=== PATIENT | female | born 1985 | race Two or more races ===

== ENCOUNTER 2023-09-08 00:50 | Emergency (ER) | payer MEDICAID ==
[~2023-09-08] VITALS: Ht 167.6 cm; Wt 59.1 kg
[2023-09-08 02:54] LABS: PH,URINE DRUG SCREEN 6.5 (5.0-8.0)
[2023-09-08 03:00] LABS: ALCOHOL, URINE DRUG SCREEN NEGATIVE (NEGATIVE); AMPHET/METH SCREEN,URINE POSITIVE (NEGATIVE); BARBITURATE SCREEN, URINE NEGATIVE (NEGATIVE); BENZODIAZEPINES SCREEN,URINE NEGATIVE (NEGATIVE); CANNABINOID SCREEN,URINE POSITIVE (NEGATIVE); COCAINE SCREEN,URINE NEGATIVE (NEGATIVE); METHADONE SCREEN, URINE NEGATIVE (NEGATIVE); OPIATE SCREEN,URINE NEGATIVE (NEGATIVE); PHENCYCLIDINE SCREEN,URINE NEGATIVE (NEGATIVE)
[2023-09-08 03:47] LABS: ANION GAP 7 mmol/L (8-16); CALCIUM, TOTAL 7.8 mg/dL (8.8-10.5); CARBON DIOXIDE 29 mmol/L (22-29); CHLORIDE 104 mmol/L (98-107); CREATININE 0.66 mg/dL (0.60-1.30); GLOMERULAR FILTR. RATE CALC > 60 mL/min (>60); GLUCOSE,RANDOM 112 mg/dL (70-110); POTASSIUM 3.3 mmol/L (3.5-5.1); SODIUM SERUM 140 mmol/L (136-145); UREA NITROGEN, BLOOD 10 mg/dL (7-18)
[2023-09-08 03:48] LABS: BASOPHILS % (AUTO) 0.3 % (0.0-2.0); EOSINOPHILS % (AUTO) 0.1 % (1.0-6.0); HEMOGLOBIN 8.1 g/dL (12.0-16.0); LYMPHOCYTES # (AUTO) 0.8 K/uL (1.0-4.8); LYMPHOCYTES % (AUTO) 6.2 % (22.0-44.0); MEAN CORPUSCULAR HEMOGLOBIN 18.4 pg (26.0-34.0); MEAN CORPUSCULAR VOLUME 62 fL (80-100); MONOCYTES # (AUTO) 0.4 K/uL (0.1-1.0); MONOCYTES % (AUTO) 3.1 % (2.0-9.0); NEUTROPHILS # (AUTO) 12.1 K/uL (1.8-7.7); PLATELET COUNT (AUTO) 260 K/uL (150-450); RED CELL DISTRIBUTION WIDTH 19.4 % (11.5-14.5); WHITE BLOOD COUNT (AUTO) 13.4 K/uL (4.5-11.0)
[2023-09-08 03:50] LABS: ALANINE AMINOTRANSFERASE 27 U/L (12-78); ALBUMIN 3.4 g/dL (3.4-5.0); ALKALINE PHOSPHATASE 56 U/L (46-116); ASPARTATE AMINOTRANSFERASE 23 U/L (15-37); BILIRUBIN,TOTAL 0.2 mg/dL (0.1-1.0)
[2023-09-08 03:54] LABS: LACTIC ACID 0.9 mmol/L (0.4-2.0)
[2023-09-08 03:55] LABS: NEUTROPHILS % (AUTO) 90.3 % (40.0-70.0)
[2023-09-08 05:02] LABS: RBC MORPHOLOGY COMMENT ABNORMAL RBC MORPH
[2023-09-08 05:51] VITALS: BP 129/79; PULSE 71; RESP 20; TEMP 98.3
== END 2023-09-08 06:44 | disposition home or self-care (01) ==
LOC: EDBD 00:50 → EMS 00:50
DX: F15.10 Other stimulant abuse, uncomplicated (principal)
CPT/HCPCS: 70450; 80053; 80307; 83605; 84703; 85025; 87040; 99284